=== PATIENT | male | born 1955 | race Caucasian/White ===

== ENCOUNTER 2022-07-04 14:29 | Emergency (ER) | payer MEDICAID ==
[~2022-07-04] VITALS: Ht 165.1 cm; Wt 68.0 kg
[2022-07-04 14:34] VITALS: BP 160/80
[2022-07-04] MEDS ORDERED: ONDANSETRON 4MG ODT PO ONE (22:30)
[2022-07-04] MEDS ORDERED: FAMOTIDINE 20MG TABLET PO ONE (22:30)
[2022-07-04] MEDS ORDERED: CHLO25CA10 PO (22:30)
[2022-07-04] MEDS ORDERED: CHLORDIAZEPOXIDE 25MG CAPSULE PO ONE (22:30)
[2022-07-04] MEDS ORDERED: CHLORDIAZEPOXIDE 25MG CAPSULE PO NR (22:45)
== END 2022-07-04 23:35 | disposition home or self-care (01) ==
LOC: ER 15:44
DX: F10.239 Alcohol dependence with withdrawal, unspecified (principal); R03.0 Elevated blood-pressure reading, without diagnosis of hypertension; E11.9 Type 2 diabetes mellitus without complications; R25.3 Fasciculation; Y90.9 Presence of alcohol in blood, level not specified
CPT/HCPCS: 82962; 99284; Q0162